=== PATIENT | male | born 1970 ===

== ENCOUNTER 2020-12-08 09:30 | Emergency (ER) | payer SELFPAY ==
[~2020-12-08] VITALS: Ht 160 cm; Wt 86.4 kg
[2020-12-08 09:41] VITALS: BP 196/76; TEMP 98.1
[2020-12-08] MEDS ORDERED: [UNRECOGNIZED DRUG - OTHER] IH (09:51)
[2020-12-08] MEDS ORDERED: FLONASEALLERGY NS (09:52)
[2020-12-08 09:55] VITALS: PULSE 90
== END 2020-12-08 09:55 | disposition home or self-care (01) ==
LOC: COL.ER 09:30
DX: J06.9 Acute upper respiratory infection, unspecified (principal); J45.909 Unspecified asthma, uncomplicated; Z86.16 Personal history of COVID-19

== ENCOUNTER 2020-12-11 10:46 | Emergency (ER) | payer SELFPAY ==
[~2020-12-11 10:46] MED LIST: FLONASEALLERGY NS; [UNRECOGNIZED DRUG - OTHER] IH
[2020-12-11 10:55] VITALS: BP 132/2; TEMP 97.9
[2020-12-11] MEDS ORDERED: ZITHROMAX Z PA250 MG PO (11:13)
[2020-12-11] MEDS ORDERED: PREDNISONE20 MG PO (11:13)
[2020-12-11 11:25] VITALS: PULSE 91
== END 2020-12-11 11:25 | disposition home or self-care (01) ==
LOC: COL.ER 10:46
DX: J20.9 Acute bronchitis, unspecified (principal); J06.9 Acute upper respiratory infection, unspecified